=== PATIENT | female | born 1945 | race Caucasian/White ===

== ENCOUNTER → 2018-09-23 | Outpatient (CLI) | payer MEDICARE ==
[~2018-09-23] MED LIST: ASCO-96 PO; CALC-223 PO; CHOL5000 PO; CYAN10005 PO; DULO30CA2 PO; FISH1CAP PO; GABA300C10 PO; HYDR-3245 PO; LEVO500T8 PO; LORA10TA3 PO; METH4TAB7 PO; METH500C3 PO; PRAV20TA2 PO; SERT50TA5 PO; VITA1CAP PO; ZOLP10TA5 PO; vitamin b
[2018-09-23 14:30] LABS: BASOPHILS # (AUTO) 0.03 x10^3/uL (0-0.1); BASOPHILS % (AUTO) 0 % (0-1); EOSINOPHILS # (AUTO) 0.19 x10^3/uL (0-0.4); EOSINOPHILS % (AUTO) 2 % (1-7); LYMPHOCYTES # (AUTO) 1.04 x10^3/uL (1-3.4); LYMPHOCYTES % (AUTO) 11 % (22-44); MD NO; MEAN CORPUSCULAR HEMOGLOBIN 27.6 pg (27.0-34.8); MEAN CORPUSCULAR VOLUME 83.5 fL (80-100); MEAN PLATELET VOLUME 8.2 fL (7.4-10.4); MONOCYTES # (AUTO) 0.65 x10^3/uL (0.2-0.8); MONOCYTES % (AUTO) 7 % (2-9); NEUTROPHILS # (AUTO) 7.89 x10^3/uL (1.8-6.8); NEUTROPHILS % (AUTO) 81 % (42-75); PLATELET COUNT 318 x10^3/uL (130-400); RED BLOOD COUNT 4.29 x10^6/uL (3.82-5.3)
[2018-09-23 14:34] LABS: ANION GAP 8 mmol/L (5-15); CALCIUM 9.1 mg/dL (8.5-10.1); CHLORIDE 114 mmol/L (98-107); CREATININE 0.83 mg/dL (0.55-1.02)
[2018-09-23 14:44] LABS: CULTURE INDICATED? YES; MICROSCOPIC INDICATED
== END | disposition home or self-care (01) ==
LOC: STAR 12:50
PROVIDERS: ATTEND Orthopaedic Surgery
DX: Z01.818 Encounter for other preprocedural examination (principal); M17.11 Unilateral primary osteoarthritis, right knee
CPT/HCPCS: 36415; 80048; 81001; 85025; 87077; 87081; 87086; 87186; 93005

== ENCOUNTER 2018-09-30 06:59 | Inpatient (IN) | payer MEDICARE ==
[2018-09-23 16:12] VITALS: BP 107/56
[~2018-09-30] VITALS: Ht 149.9 cm; Wt 68.0 kg
[2018-09-30] MEDS ORDERED: LACTATED RINGERS 1,000 ML IV SCH (07:40)
[2018-09-30] MEDS ORDERED: GABAPENTIN 300 MG CAPSULE PO ONE (08:00)
[2018-09-30] MEDS ORDERED: SCOPOLAMINE PATCH, 1.5MG PATCH.TD72 TD ONE (08:00)
[2018-09-30] MEDS ORDERED: ACETAMINOPHEN 500 MG TABLET PO ONE (08:00)
[2018-09-30] MEDS ORDERED: LIDOCAINE-MPF 1%, 2ML INFIL ONE (08:00)
[2018-09-30] MEDS ORDERED: MIDAZOLAM 1 MG/ML, 2ML ONE (08:16)
[2018-09-30] MEDS ORDERED: KETOROLAC 60 MG/2 ML ONE (09:27)
[2018-09-30] MEDS ORDERED: TRANEXAMIC ACID 100 MG/ML, 10ML ONE (09:27)
[2018-09-30] MEDS ORDERED: SODIUM CHLORIDE 0.9% 100 ML ONE (09:28)
[2018-09-30] MEDS ORDERED: ROPIvacaine/PF 0.2%, 20 ML ONE ×2 (09:28→10:09)
[2018-09-30] MEDS ORDERED: EPINEPHRINE 1 MG/ML, 1ML ONE (09:28)
[2018-09-30] MEDS ORDERED: PROPOFOL 10 MG/ML, 20ML ONE (09:37)
[2018-09-30] MEDS ORDERED: SUCCINYLCHOLINE 20 MG/ML, 10ML ONE (09:37)
[2018-09-30] MEDS ORDERED: CEFAZOLIN 1,000 MG ONE (09:37)
[2018-09-30] MEDS ORDERED: ROCURONIUM 10 MG/ML,10ML ONE (09:37)
[2018-09-30] MEDS ORDERED: ROPIvacaine/PF 0.5%, 20 ML ONE (10:04)
[2018-09-30] MEDS ORDERED: FENTANYL PF 250 MCG/5ML ONE (10:26)
[2018-09-30] MEDS ORDERED: ROPIvacaine/PF 0.2%, 100ML 500 ML in BAG 1 EACH INJ ONE (11:00)
[2018-09-30] MEDS: D5%-0.45% NACL 1,000 ML IV SCH (11:07)
[2018-09-30] MEDS ORDERED: PROMETHAZINE 12.5 MG SUPP PR PRN (11:30)
[2018-09-30] MEDS ORDERED: BISACODYL 10 MG SUPP PR PRN (11:30)
[2018-09-30] MEDS ORDERED: TRANEXAMIC ACID 1,000 MG in SODIUM CHLORIDE 0.9% 100 ML IVPB ONE (11:30)
[2018-09-30] MEDS ORDERED: DIPHENHYDRAMINE 50 MG CAPSULE PO PRN (11:30)
[2018-09-30] MEDS ORDERED: ONDANSETRON 2MG/ML, 2ML IV PRN (11:30)
[2018-09-30] MEDS ORDERED: LORazepam 2 MG/ML, 1ML IVPush PRN (11:30)
[2018-09-30] MEDS ORDERED: ACETAMINOPHEN 650 MG/20.3 ML UDC PO PRN (11:30)
[2018-09-30] MEDS ORDERED: DIAZEPAM 5 MG TABLET PO PRN (11:30)
[2018-09-30] MEDS ORDERED: OXYcodone IR 5MG TABLET PO PRN (11:30)
[2018-09-30] MEDS ORDERED: ONDANSETRON 4 MG TABLET PO PRN (11:30)
[2018-09-30] MEDS ORDERED: LORazepam 1MG TABLET PO PRN (11:30)
[2018-09-30] MEDS ORDERED: ALUMINUM/MAG/SIMETHICONE 30 ML UDC PO PRN (11:30)
[2018-09-30] MEDS ORDERED: SENNA/DOCUSATE TABLET PO PRN (11:30)
[2018-09-30] MEDS ORDERED: PROMETHAZINE 25 MG/ML, 1ML IM PRN (11:30)
[2018-09-30] MEDS ORDERED: HYDROmorphone 1 MG/ML, 1ML IV PRN ×2 (11:30→12:30)
[2018-09-30] MEDS ORDERED: MAGNESIUM HYDROXIDE 8%, 30ML UDC PO PRN (11:30)
[2018-09-30] MEDS ORDERED: OXYcodone 5 MG/5 ML ORAL.SOL UDC ONE (12:01)
[2018-09-30] MEDS ORDERED: FENTANYL PF 100 MCG/2ML ONE (12:01)
[2018-09-30] MEDS ORDERED: LABETALOL 20 MG/4 ML ONE (12:01)
[2018-09-30] MEDS ORDERED: LABETALOL 5MG/ML, 20ML IV PRN (12:30)
[2018-09-30] MEDS ORDERED: hydrALAzine 20 MG/ML, 1ML IV PRN (12:30)
[2018-09-30] MEDS ORDERED: OXYcodone 5 MG/5 ML ORAL.SOL UDC PO PRN (12:30)
[2018-09-30] MEDS ORDERED: FENTANYL PF 100 MCG/2ML IV PRN (12:30)
[2018-09-30 15:40] VITALS: BP 115/63
[2018-09-30] MEDS: GABAPENTIN 300 MG CAPSULE PO SCH ×2 (16:23→22:04)
[2018-09-30] MEDS: HYDROcodone/APAP 10/325 MG TABLET PO PRN ×2 (16:23→22:04)
[2018-09-30] MEDS: CEFAZOLIN PMX 1GM/50ML 50 ML IVPB SCH (16:23)
[2018-09-30] MEDS: DULOXETINE 30 MG CAPSULE.DR PO SCH ×2 (16:23→22:04)
[2018-09-30 21:23] VITALS: BP 129/64
[2018-09-30] MEDS: DOCUSATE 100 MG CAPSULE PO SCH (22:04)
[2018-09-30] MEDS: PRAVASTATIN 20 MG TABLET PO SCH (22:04)
[2018-09-30] MEDS: ZOLPIDEM 5MG TABLET PO PRN (22:11)
[2018-10-01 00:14] VITALS: BP 115/71
[2018-10-01] MEDS: CEFAZOLIN PMX 1GM/50ML 50 ML IVPB SCH (01:06)
[2018-10-01] MEDS: HYDROcodone/APAP 10/325 MG TABLET PO PRN ×5 (02:40→22:33)
[2018-10-01 04:37] VITALS: BP 132/78
[2018-10-01] MEDS ORDERED: DEXAMETHASONE 4 MG/ML, 1ML IVPush SCH (06:00)
[2018-10-01] MEDS: D5%-0.45% NACL 1,000 ML IV SCH (07:07)
[2018-10-01] MEDS: DOCUSATE 100 MG CAPSULE PO SCH ×3 (08:08→21:29)
[2018-10-01] MEDS: MULTIVITAMINS/MINERALS TABLET PO SCH (08:08)
[2018-10-01] MEDS: CYANOCOBALAMIN 1,000 MCG TABLET PO SCH (08:08)
[2018-10-01] MEDS: DULOXETINE 30 MG CAPSULE.DR PO SCH ×3 (08:08→21:29)
[2018-10-01] MEDS: SERTRALINE 50MG TABLET PO SCH (08:08)
[2018-10-01] MEDS: GABAPENTIN 300 MG CAPSULE PO SCH ×3 (08:08→21:30)
[2018-10-01 08:20] VITALS: BP 140/83
[2018-10-01] MEDS ORDERED: METHYLSULFONYLMETHANE 1000 MG PO SCH (09:00)
[2018-10-01] MEDS: KETOROLAC 30 MG/1 ML IV SCH ×2 (11:51→21:30)
[2018-10-01 14:45] VITALS: BP 117/64
[2018-10-01] MEDS: ASPIRIN 81 MG TABLET EC PO SCH (18:13)
[2018-10-01 19:54] VITALS: BP 120/68
[2018-10-01] MEDS: ZOLPIDEM 5MG TABLET PO PRN ×2 (21:29→22:33)
[2018-10-01] MEDS: PRAVASTATIN 20 MG TABLET PO SCH (21:29)
[2018-10-02 02:40] VITALS: BP 118/62
[2018-10-02] MEDS: D5%-0.45% NACL 1,000 ML IV SCH ×2 (03:07→19:21)
[2018-10-02] MEDS: KETOROLAC 30 MG/1 ML IV SCH (05:42)
[2018-10-02] MEDS: ASPIRIN 81 MG TABLET EC PO SCH ×2 (05:42→19:22)
[2018-10-02] MEDS: SERTRALINE 50MG TABLET PO SCH (09:12)
[2018-10-02] MEDS: CYANOCOBALAMIN 1,000 MCG TABLET PO SCH (09:12)
[2018-10-02] MEDS: GABAPENTIN 300 MG CAPSULE PO SCH ×3 (09:13→20:11)
[2018-10-02] MEDS: DULOXETINE 30 MG CAPSULE.DR PO SCH ×3 (09:13→20:11)
[2018-10-02] MEDS: MULTIVITAMINS/MINERALS TABLET PO SCH (09:13)
[2018-10-02] MEDS: DOCUSATE 100 MG CAPSULE PO SCH ×2 (09:13→20:11)
[2018-10-02 09:15] VITALS: BP 102/63
[2018-10-02] MEDS: HYDROcodone/APAP 10/325 MG TABLET PO PRN ×3 (10:56→20:11)
[2018-10-02 14:00] VITALS: BP 109/68
[2018-10-02 19:41] VITALS: BP 110/71
[2018-10-02] MEDS: PRAVASTATIN 20 MG TABLET PO SCH (20:11)
[2018-10-02] MEDS: ZOLPIDEM 5MG TABLET PO PRN (21:54)
[2018-10-03 01:18] VITALS: BP 104/65
[2018-10-03] MEDS: HYDROcodone/APAP 10/325 MG TABLET PO PRN ×3 (06:09→14:03)
[2018-10-03] MEDS: ASPIRIN 81 MG TABLET EC PO SCH (06:09)
[2018-10-03 07:32] VITALS: BP 109/71
[2018-10-03] MEDS: DULOXETINE 30 MG CAPSULE.DR PO SCH (09:17)
[2018-10-03] MEDS: CYANOCOBALAMIN 1,000 MCG TABLET PO SCH (09:18)
[2018-10-03] MEDS: GABAPENTIN 300 MG CAPSULE PO SCH (09:18)
[2018-10-03] MEDS: MULTIVITAMINS/MINERALS TABLET PO SCH (09:18)
[2018-10-03] MEDS: SERTRALINE 50MG TABLET PO SCH (09:18)
[2018-10-03] MEDS: DOCUSATE 100 MG CAPSULE PO SCH (09:18)
[2018-10-03 14:00] VITALS: BP 105/69
== END 2018-10-03 16:49 | DRG 469 ==
LOC: OUT 06:59 → ORIP 11:07 → 4NOR 12:36
PROVIDERS: ADMIT Orthopaedic Surgery; ATTEND Orthopaedic Surgery
PROC: 0SRC0J9 Replacement of Right Knee Joint with Synthetic Substitute, Cemented, Open Approach (ICD-10-PCS; principal; 2018-09-30 09:45)
DX: M17.11 Unilateral primary osteoarthritis, right knee (principal); R53.2 Functional quadriplegia; E78.5 Hyperlipidemia, unspecified; M21.061 Valgus deformity, not elsewhere classified, right knee; G89.29 Other chronic pain; F32.9 Major depressive disorder, single episode, unspecified; G47.33 Obstructive sleep apnea (adult) (pediatric); I10 Essential (primary) hypertension; F41.9 Anxiety disorder, unspecified; Z88.2 Allergy status to sulfonamides; Z91.040 Latex allergy status; Z79.899 Other long term (current) drug therapy
CPT/HCPCS: 36415; 85014; 85018; C1713; G0378; J0171; J0690; J1100; J1885; J2250; J2704; J2795; J3010; J7509; C1776; J0330; J7120

== ENCOUNTER → 2018-12-30 | Outpatient (CLI) | payer MEDICARE ==
[~2018-12-30] MED LIST changes: +LORA-247 PO; -LORA10TA3 PO; +OXYB5TAB7 PO; +SERT50TA28 PO; -SERT50TA5 PO
[2018-12-30 15:41] LABS: BASOPHILS # (AUTO) 0.03 x10^3/uL (0-0.1); BASOPHILS % (AUTO) 0 % (0-1); EOSINOPHILS # (AUTO) 0.23 x10^3/uL (0-0.4); EOSINOPHILS % (AUTO) 2 % (1-7); LYMPHOCYTES # (AUTO) 1.46 x10^3/uL (1-3.4); LYMPHOCYTES % (AUTO) 11 % (22-44); MD NO; MEAN CORPUSCULAR HEMOGLOBIN 25.3 pg (27.0-34.8); MEAN CORPUSCULAR HGB CONC 32.4 g/dL (32.4-35.8); MEAN CORPUSCULAR VOLUME 78.2 fL (80-100); MEAN PLATELET VOLUME 8.6 fL (7.4-10.4); MONOCYTES # (AUTO) 0.79 x10^3/uL (0.2-0.8); MONOCYTES % (AUTO) 6 % (2-9); NEUTROPHILS # (AUTO) 10.86 x10^3/uL (1.8-6.8); NEUTROPHILS % (AUTO) 81 % (42-75); PLATELET COUNT 369 x10^3/uL (130-400); RED BLOOD COUNT 4.79 x10^6/uL (3.82-5.3); RED CELL DISTRIBUTION WIDTH 16.6 % (9.6-15.2)
[2018-12-30 15:51] LABS: ANION GAP 7 mmol/L (5-15); CALCIUM 9.5 mg/dL (8.5-10.1); CHLORIDE 110 mmol/L (98-107); CREATININE 0.86 mg/dL (0.55-1.02)
[2018-12-30 15:53] LABS: MICROSCOPIC AUTO
[2018-12-30 15:57] LABS: CULTURE INDICATED? YES
== END | disposition home or self-care (01) ==
LOC: STAR 14:20
PROVIDERS: ATTEND Orthopaedic Surgery
DX: Z01.818 Encounter for other preprocedural examination (principal); M17.12 Unilateral primary osteoarthritis, left knee
CPT/HCPCS: 36415; 80048; 81001; 85025; 87081; 87086; 93005

== ENCOUNTER 2019-01-11 08:10 | Inpatient (IN) | payer MEDICARE ==
[~2019-01-11] VITALS: Ht 149.9 cm; Wt 63.7 kg
[2019-01-11] MEDS ORDERED: LACTATED RINGERS 1,000 ML IV SCH (08:58)
[2019-01-11] MEDS ORDERED: ACETAMINOPHEN 500 MG TABLET PO ONE (09:00)
[2019-01-11] MEDS ORDERED: ONDANSETRON ODT 8 MG PO ONE (09:00)
[2019-01-11] MEDS ORDERED: GABAPENTIN 300 MG CAPSULE PO ONE (09:00)
[2019-01-11 09:28] VITALS: BP 128/74
[2019-01-11] MEDS ORDERED: FENTANYL PF 100 MCG/2ML ONE ×3 (09:28→12:39)
[2019-01-11] MEDS ORDERED: MIDAZOLAM 1 MG/ML, 2ML ONE (09:28)
[2019-01-11] MEDS ORDERED: PROPOFOL 10 MG/ML, 20ML ONE (09:29)
[2019-01-11] MEDS ORDERED: DEXAMETHASONE 4 MG/ML, 5ML ONE (09:30)
[2019-01-11] MEDS ORDERED: ONDANSETRON 2MG/ML, 2ML ONE (09:30)
[2019-01-11] MEDS ORDERED: CEFAZOLIN 1,000 MG ONE ×2 (09:30)
[2019-01-11] MEDS ORDERED: SUCCINYLCHOLINE 20 MG/ML, 10ML ONE (09:30)
[2019-01-11] MEDS ORDERED: EPINEPHRINE 1 MG/ML, 1ML ONE (09:55)
[2019-01-11] MEDS ORDERED: TRANEXAMIC ACID 100 MG/ML, 10ML ONE (09:55)
[2019-01-11] MEDS ORDERED: SODIUM CHLORIDE 0.9% 100 ML ONE (09:55)
[2019-01-11] MEDS ORDERED: ROPIvacaine/PF 0.2%, 20 ML ONE (09:55)
[2019-01-11] MEDS ORDERED: KETOROLAC 60 MG/2 ML ONE (09:55)
[2019-01-11] MEDS ORDERED: METOCLOPRAMIDE 5 MG/ML, 2ML IV PRN (10:30)
[2019-01-11] MEDS ORDERED: LORazepam 2 MG/ML, 1ML IVPush PRN (10:30)
[2019-01-11] MEDS ORDERED: hydrALAzine 20 MG/ML, 1ML IV PRN (10:30)
[2019-01-11] MEDS ORDERED: HYDROmorphone 2 MG/ML, 1ML IVPush PRN (10:30)
[2019-01-11] MEDS ORDERED: LABETALOL 5MG/ML, 20ML IV PRN (10:30)
[2019-01-11] MEDS ORDERED: MORPHINE SULFATE 4 MG/ML, 1ML IVPush PRN (10:30)
[2019-01-11] MEDS ORDERED: METOPROLOL 1 MG/ML, 5ML ONE (10:53)
[2019-01-11] MEDS ORDERED: ONDANSETRON 4 MG TABLET PO PRN (12:30)
[2019-01-11] MEDS ORDERED: MAGNESIUM HYDROXIDE 8%, 30ML UDC PO PRN (12:30)
[2019-01-11] MEDS: ACETAMINOPHEN 650 MG/20.3 ML UDC PO SCH ×3 (12:30→21:22)
[2019-01-11] MEDS ORDERED: DIAZEPAM 5 MG TABLET PO PRN (12:30)
[2019-01-11] MEDS ORDERED: DIPHENHYDRAMINE 25 MG CAPSULE PO PRN (12:30)
[2019-01-11] MEDS ORDERED: SENNA/DOCUSATE TABLET PO PRN (12:30)
[2019-01-11] MEDS ORDERED: HYDROmorphone 1 MG/ML, 1ML IV PRN (12:30)
[2019-01-11] MEDS ORDERED: PROMETHAZINE 12.5 MG SUPP PR PRN (12:30)
[2019-01-11] MEDS ORDERED: BISACODYL 10 MG SUPP PR PRN (12:30)
[2019-01-11] MEDS ORDERED: PROMETHAZINE 25 MG/ML, 1ML IM PRN (12:30)
[2019-01-11] MEDS ORDERED: ZOLPIDEM 5MG TABLET PO PRN (12:30)
[2019-01-11] MEDS ORDERED: ONDANSETRON 2MG/ML, 2ML IV PRN (12:30)
[2019-01-11] MEDS ORDERED: ALUMINUM/MAG/SIMETHICONE 30 ML UDC PO PRN (12:30)
[2019-01-11] MEDS ORDERED: OXYcodone 5 MG/5 ML ORAL.SOL UDC ONE (12:39)
[2019-01-11] MEDS: OXYcodone 5 MG/5 ML ORAL.SOL UDC PO PRN ×2 (12:43→13:37)
[2019-01-11] MEDS: FENTANYL PF 100 MCG/2ML IV PRN ×2 (12:43→13:37)
[2019-01-11] MEDS ORDERED: TRANEXAMIC ACID 1,000 MG in SODIUM CHLORIDE 0.9% 100 ML IVPB ONE (12:45)
[2019-01-11 14:25] VITALS: BP 130/73
[2019-01-11 14:35] VITALS: BP 130/73
[2019-01-11 14:51] VITALS: BP 125/66
[2019-01-11] MEDS: D5%-0.45% NACL 1,000 ML IV SCH ×2 (15:08→23:42)
[2019-01-11] MEDS: DULOXETINE 30 MG CAPSULE.DR PO SCH ×2 (15:08→21:22)
[2019-01-11] MEDS: GABAPENTIN 300 MG CAPSULE PO SCH ×2 (15:08→21:22)
[2019-01-11] MEDS: ASPIRIN 81 MG TABLET EC PO SCH (17:53)
[2019-01-11] MEDS: HYDROcodone/APAP 10/325 MG TABLET PO PRN (17:53)
[2019-01-11 19:59] VITALS: BP 108/50
[2019-01-11] MEDS ORDERED: PRAVASTATIN 20 MG TABLET PO SCH (21:00)
[2019-01-11] MEDS: CEFAZOLIN PMX 1GM/50ML 50 ML IVPB SCH (21:21)
[2019-01-11] MEDS: DOCUSATE 100 MG CAPSULE PO SCH (21:22)
[2019-01-11] MEDS ORDERED: OXYBUTYNIN CHLORIDE 5 MG TABLET PO SCH (21:30)
[2019-01-12 00:06] VITALS: BP 123/61
[2019-01-12 04:02] VITALS: BP 95/54
[2019-01-12] MEDS: ACETAMINOPHEN 650 MG/20.3 ML UDC PO SCH ×2 (04:12→08:23)
[2019-01-12] MEDS: CEFAZOLIN PMX 1GM/50ML 50 ML IVPB SCH (05:45)
[2019-01-12] MEDS: ASPIRIN 81 MG TABLET EC PO SCH (05:46)
[2019-01-12] MEDS ORDERED: DEXAMETHASONE 4 MG/ML, 1ML IVPush SCH (06:00)
[2019-01-12] MEDS: D5%-0.45% NACL 1,000 ML IV SCH (07:32)
[2019-01-12] MEDS: GABAPENTIN 300 MG CAPSULE PO SCH (08:23)
[2019-01-12] MEDS: DOCUSATE 100 MG CAPSULE PO SCH (08:23)
[2019-01-12] MEDS: DULOXETINE 30 MG CAPSULE.DR PO SCH (08:24)
[2019-01-12 08:38] VITALS: BP 96/56
[2019-01-12] MEDS ORDERED: MULTIVITAMINS/MINERALS TABLET PO SCH (09:00)
[2019-01-12] MEDS ORDERED: SERTRALINE 50MG TABLET PO SCH (09:00)
[2019-01-12] MEDS ORDERED: OXYBUTYNIN CHLORIDE 5 MG TABLET PO SCH (09:00)
[2019-01-12] MEDS ORDERED: KETOROLAC 30 MG/1 ML IV SCH (12:30)
[2019-01-12] MEDS: HYDROcodone/APAP 10/325 MG TABLET PO PRN (13:21)
== END 2019-01-12 14:54 | disposition home or self-care (01) | DRG 470 ==
LOC: OUT 08:10 → ORIP 12:14 → 4NOR 14:16 → DCLOUNGE 01-12 14:28
PROVIDERS: ADMIT Orthopaedic Surgery; ATTEND Orthopaedic Surgery
PROC: 3E0T3BZ Introduction of Anesthetic Agent into Peripheral Nerves and Plexi, Percutaneous Approach (ICD-10-PCS; 2019-01-11)
PROC: 0SRD0J9 Replacement of Left Knee Joint with Synthetic Substitute, Cemented, Open Approach (ICD-10-PCS; principal; 2019-01-11 11:00)
DX: M17.12 Unilateral primary osteoarthritis, left knee (principal); F32.9 Major depressive disorder, single episode, unspecified; F41.9 Anxiety disorder, unspecified; M21.162 Varus deformity, not elsewhere classified, left knee; E78.5 Hyperlipidemia, unspecified; G62.9 Polyneuropathy, unspecified; Z88.2 Allergy status to sulfonamides; Z88.6 Allergy status to analgesic agent; Z91.040 Latex allergy status
CPT/HCPCS: 36415; 85014; 85018; C1713; G0378; J0171; J0690; J1100; J1885; J2250; J2405; J2704; J2795; J3010; Q0162; C1776; J0330; J7120

== ENCOUNTER 2019-09-28 14:01 | Outpatient (CLI) | payer MEDICARE ==
[~2019-09-28 14:01] MED LIST changes: +CYAN-27 PO; -CYAN10005 PO; +OXYB5TAB10 PO; -OXYB5TAB7 PO
== END 2019-09-28 23:59 | disposition home or self-care (01) ==
LOC: CFH 14:01
PROVIDERS: ATTEND Family Medicine
DX: M53.3 Sacrococcygeal disorders, not elsewhere classified (principal); M51.36 Other intervertebral disc degeneration, lumbar region
CPT/HCPCS: 72110

== ENCOUNTER → 2019-12-30 | Outpatient (CLI) | payer MEDICARE | END | disposition home or self-care (01) | LOC: CFH 13:47 | PROVIDERS: ATTEND Family Medicine | DX: M50.322 Other cervical disc degeneration at C5-C6 level (principal); M47.812 Spondylosis without myelopathy or radiculopathy, cervical region; M48.02 Spinal stenosis, cervical region; M25.78 Osteophyte, vertebrae | CPT/HCPCS: 72050 ==

== ENCOUNTER 2020-01-13 20:08 | Emergency (ER) | payer MEDICARE ==
[~2020-01-13] VITALS: Ht 149.9 cm; Wt 60.1 kg
[2020-01-13 20:22] VITALS: BP 133/73
[2020-01-13] MEDS ORDERED: DIPH,PERTUSS(ACELL),TET VAC/PF 0.5 ML IM-VACC ONE ×2 (20:54→21:00)
[2020-01-13] MEDS ORDERED: L.E.T SOLUTION TP ONE ×2 (20:55→21:00)
[2020-01-13] MEDS ORDERED: NEOSPORIN OINT. PKT 1 PACKET ONE (21:56)
== END 2020-01-13 22:10 | disposition home or self-care (01) ==
LOC: ED 22:00
DX: S50.811A Abrasion of right forearm, initial encounter (principal); S09.90XA Unspecified injury of head, initial encounter; M54.2 Cervicalgia; G89.29 Other chronic pain; W22.8XXA Striking against or struck by other objects, initial encounter; Y93.89 Activity, other specified; Y92.009 Unspecified place in unspecified non-institutional (private) residence as the place of occurrence of the external cause; Y99.0 Civilian activity done for income or pay
CPT/HCPCS: 12034; 70450; 72125; 90471; 90715; 99285

== ENCOUNTER → 2020-03-03 | Outpatient (CLI) | payer MEDICARE | END | disposition home or self-care (01) | LOC: RAD 13:57 | PROVIDERS: ATTEND Registered Nurse | DX: M47.26 Other spondylosis with radiculopathy, lumbar region (principal); M51.16 Intervertebral disc disorders with radiculopathy, lumbar region; M41.86 Other forms of scoliosis, lumbar region | CPT/HCPCS: 72114; 72202 ==

== ENCOUNTER 2021-01-25 13:35 | Emergency (ER) | payer MEDICARE ==
[~2021-01-25] VITALS: Ht 152.4 cm; Wt 60.0 kg
[~2021-01-25 13:35] MED LIST changes: -HYDR-3245 PO; +HYDR1TAB53 PO
--- NOTE | 2021-01-25 14:16 | NUR ---
PT TO ROOM 28 W/ C/O DIARRHEA X 3 DAYS AND ASSOCIATED WEAKNESS. PT STATES SHE HAS NO OTHER SX. PT STATES SHE HAS ONLY BEEN DRINKING GATORADE. DENIES N/V. PT RESTING ON [employer]pad[employer]. NADN. MONITORS APPLIED. VSS.
[2021-01-25] MEDS ORDERED: SODIUM CHLORIDE 0.9% 1,000ML IVBOLUS ONE (15:00)
[2021-01-25] MEDS ORDERED: SODIUM CHLORIDE FLUSH 10ML SYR IVF ONE (15:00)
--- NOTE | 2021-01-25 15:10 | NUR ---
PT RESTING ON GURNEY. NADN. BIRD.
[2021-01-25 15:25] LABS: BASOPHILS % (AUTO) 1 % (0-1); EOSINOPHILS % (AUTO) 1 % (1-7); LYMPHOCYTES % (AUTO) 23 % (22-44); MEAN CORPUSCULAR HEMOGLOBIN 30.1 pg (27.0-34.8); MEAN CORPUSCULAR HGB CONC 33.8 g/dL (32.4-35.8); MEAN PLATELET VOLUME 8.4 fL (7.4-10.4); MONOCYTES % (AUTO) 7 % (2-9); NEUTROPHILS % (AUTO) 68 % (42-75); PLATELET COUNT 277 x10^3/uL (130-400); RED BLOOD COUNT 4.87 x10^6/uL (3.82-5.3); RED CELL DISTRIBUTION WIDTH 14.6 % (9.6-15.2)
[2021-01-25 15:27] LABS: MD NO
[2021-01-25 15:35] LABS: ALANINE AMINOTRANSFERASE 26 U/L (12-78); ALBUMIN 3.8 g/dL (3.4-5.0); ANION GAP 9 mmol/L (5-15); CALCIUM 9.6 mg/dL (8.5-10.1); CHLORIDE 111 mmol/L (98-107); CREATININE 0.92 mg/dL (0.55-1.02)
[2021-01-25 15:36] LABS: MICROSCOPIC INDICATED
[2021-01-25 15:37] LABS: ALKALINE PHOSPHATASE 64 U/L (45-117); BILIRUBIN,TOTAL 0.3 mg/dL (0.2-1.0); TOTAL PROTEIN 7.6 g/dL (6.4-8.2)
--- NOTE | 2021-01-25 15:59 | NUR ---
PT RESTING ON GURNEY. NADN. BIRD.
--- NOTE | 2021-01-25 16:36 | NUR ---
PT CHART REVIEWED AND PLACED FOR RECHECK.
--- NOTE | 2021-01-25 16:39 | NUR ---
PT PROVIDED W/ PO FLUIDS PER ERP REQUEST.
--- NOTE | 2021-01-25 17:19 | NUR ---
PT TOLERATING FLUIDS. ERP DR. BABCOCK AT BEDSIDE FOR RE-EVAL.
[2021-01-25 17:28] VITALS: BP 126/52
--- NOTE | 2021-01-25 17:28 | NUR ---
PT RESTING ON GURNEY. NADN. BIRD.
== END 2021-01-25 18:24 | disposition home or self-care (01) ==
LOC: ED 18:10
DX: R19.7 Diarrhea, unspecified (principal); R53.1 Weakness; Z87.891 Personal history of nicotine dependence
CPT/HCPCS: 36415; 74021; 80053; 81001; 83690; 85025; 87086; 96360; 99285; J7030

== ENCOUNTER 2021-04-15 16:47 | Emergency (ER) | payer MEDICARE ==
[~2021-04-15] VITALS: Ht 149.9 cm; Wt 56.0 kg
[2021-04-15 16:57] VITALS: BP 133/67
[2021-04-15] MEDS ORDERED: KETOROLAC 30 MG/1 ML IM ONE (17:30)
--- NOTE | 2021-04-15 17:32 | NUR ---
PT HERE FOR C/O TAILBONE PAIN, PT REPORTS SHE HAD GLF YESTERDAY, ALSO C/O PAIN ON RIGHT HIP.
[2021-04-15] MEDS ORDERED: KETOROLAC 30 MG/1 ML ONE (17:37)
--- NOTE | 2021-04-15 17:58 | NUR ---
PT OFF UNIT FOR CT.
--- NOTE | 2021-04-15 18:57 | NUR ---
Break RN: Discharge instructions given. All questions and concerns addressed. Patient wheeled out in wheelchair. Belongings with patient.
== END 2021-04-15 18:59 | disposition home or self-care (01) ==
LOC: ED 18:40
DX: S70.01XA Contusion of right hip, initial encounter (principal); S09.90XA Unspecified injury of head, initial encounter; E78.5 Hyperlipidemia, unspecified; Z88.2 Allergy status to sulfonamides; W01.0XXA Fall on same level from slipping, tripping and stumbling without subsequent striking against object, initial encounter; Y93.89 Activity, other specified; Y92.009 Unspecified place in unspecified non-institutional (private) residence as the place of occurrence of the external cause; Y99.8 Other external cause status
CPT/HCPCS: 70450; 72125; 72220; 73502; 96372; 99285; J1885